=== PATIENT | female | born 1945 | race Caucasian/White ===

== ENCOUNTER 2018-06-29 19:08 | Emergency (ER) | payer OTHER, MEDICARE ==
[~2018-06-29] VITALS: Ht 165.1 cm; Wt 83.9 kg
[~2018-06-29 19:08] MED LIST: CHERATUSSIN AC118 M1 PO; ESCITALOPRAM10 MG PO; IBUPROFEN800 MG PO; MASON NATURAL1200 MG PO; NAPROXEN SODIU550 MG PO; OMEPRAZOLE40 MG PO; PRINIVIL 5MG5 MG PO; TRAMADOL HCL50 MG PO; VITAMIN D31000 IU PO
--- NOTE | 2018-06-29 21:17 | ED GENERAL ADULT ---
History of Present Illness General Chief Complaint: Neck/Upper Back Pain/Injury Stated Complaint: NECK PAIN X COUPLE OF WEEKS Source: patient Exam Limitations: no limitations Vital Signs & Intake/Output Vital Signs & Intake/Output Vital Signs Date Time Temp Pulse Resp B/P B/P Pulse O2 O2 Flow FiO2 Mean Ox Delivery Rate 06/297 98.4 66 16 180/82 100 Room Air 06/29 1913 97.0 78 18 152/88 98 Room Air Allergies Coded Allergies: NO KNOWN ALLERGIES (07/20/12) Reconcile Medications Cholecalciferol (Vitamin D3) 1,000 IU TAB 1 TAB PO DAILY SUPPLEMENT (Reported ) Codeine Phosphate/Guaifenesi (Cheratussin AC Syrup) 10 MG-100 MG/5 ML LIQUID 10 ML PO Q6P PRN COUGH Cyclobenzaprine HCl 10 MG TABLET 1 TAB PO BID PRN PAIN Escitalopram Oxalate 10 MG TABLET 0.5 TAB PO DAILY MENTAL HEALTH (Reported) Ibuprofen 800 MG TABLET 1 TAB PO TID PRN RA (Reported) OMEGA-3 FATTY ACIDS/FISH OIL (Fish Oil 1,200 MG Softgel) 360 MG-1,200 MG CAPSULE 1 SGL PO DAILY SUPPLEMENT (Reported) Omeprazole 40 MG CAPSULE.DR 1 CAP PO DAILY AC GI (Reported) Prednisone 5 MG TABLET 2 TAB PO DAILY ARTHTITIS TRAMADOL HCL (Tramadol HCl) 50 MG TABLET 1 TAB PO PRN PAIN R/T KIDNEY STONES (Reported) Triage Note: 73 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 DENIES CP Triage Nurses Notes Reviewed? yes Onset: Gradual Duration: week(s): Timing: recent history HPI: 73 year old female presents to the emergency department with right sided neck pain and decreased range of motion. She states that she has a history of rheumatoid arthritis. She states the pain in her neck has been going on for 3 months. She denies chest pain, abdominal pain or shortness of breath. She says that the pain is been ongoing for 3 months but worse over the past 3 weeks. She also has severe pain in her hands. She used to be on a low dose of methotrexate. Past History Travel History Traveled to [place] past 21 day No Medical History Any Pertinent Medical History? see below for history Neurological: NONE EENT: NONE Cardiovascular: NONE Respiratory: NONE Gastrointestinal: ACID REFLUX Hepatic: NONE Renal: NONE Musculoskeletal: RHEUMATOID ARTHRITIS Psychiatric: NONE Endocrine: NONE Surgical History Surgical History: non-contributory Psychosocial History What is your primary language Indian Tobacco Use: Never used ETOH Use: denies use Illicit Drug Use: denies illicit drug use Family History Hx Contributory? No Review of Systems Review of Systems Constitutional: Reports: see HPI. Denies: fever. EENTM: Reports: no symptoms. Denies: double vision, visual changes. Respiratory: Reports: no symptoms. Denies: short of breath. Cardiovascular: Reports: no symptoms. Denies: chest pain. GI: Reports: no symptoms. Genitourinary: Reports: no symptoms. Musculoskeletal: Reports: see HPI, neck pain. Skin: Reports: no symptoms. Neurological/Psychological: Reports: no symptoms. Hematologic/Endocrine: Reports: no symptoms. Immunologic/Allergic: Reports: no symptoms. All Other Systems: Reviewed and Negative Physical Exam Physical Exam General Appearance: no apparent distress, alert, awake, mild distress Head: atraumatic, normal appearance Eyes: Bilateral: normal appearance, PERRL, EOMI. Ears, Nose, Throat: normal ENT inspection Neck: limited range of motion, tender lateral (right sided) Respiratory: normal breath sounds, lungs clear Cardiovascular: regular rate/rhythm Peripheral Pulses: 4+ radial (R), 4+ radial (L) Gastrointestinal: soft, non-tender Back: normal inspection, normal range of motion Extremities: normal inspection, normal range of motion Neurologic/Psych: no motor/sensory deficits, awake, alert, oriented x 3 Skin: intact, normal color, warm/dry Core Measures ACS in differential dx? No CVA/TIA Diagnosis: No Sepsis Present: No Sepsis Focused Exam Completed? No Progress Differential Diagnoses I considered the following diagnoses in my evaluation of the patient: [Arthritis , disc herniation, epidural abscess, epidural hematoma, transverse myelitis,] Plan of Care: Orders Procedure Date/time Status EKG 06/295 Active Durable Medical Equipment 06/29 2302 Active Saline Lock 06/29 2147 Active Initial ED EKG: NSR Prior EKG: unchanged Departure Departure Disposition: STILL A PATIENT Condition: Stable Clinical Impression Primary Impression: Cervical arthritis Secondary Impressions: Rheumatoid arthritis Referrals: Patient Has No Primary Care Dr (PCP/Family) Departure Forms: Customer Survey General Discharge Information Prescriptions: Current Visit Scripts Cyclobenzaprine HCl 1 TAB PO BID PRN PAIN #20 TAB Prednisone 2 TAB PO DAILY #12 TAB Comments PATIENT: KENYON AGUIRRE PRESENT AGE: 73 PATIENT ACCOUNT NO: [id number] : 47 LOCATION: [facility] ORDERING PHYSICIAN: Gene Thomas DO SERVICE DATE: 06/29/18 EXAM TYPE: CAT - CT CERV SPINE WO IV CONTRAST; CT HEAD WO IV CONTRAST EXAMINATION: CT HEAD WITHOUT CONTRAST CT CERVICAL SPINE WITHOUT CONTRAST CLINICAL INFORMATION: Headache. Neck pain. COMPARISON: CT head 02/21/2015. CT of chest 05/02/2016. TECHNIQUE: Imaging was performed from the skull base to vertex without intravenous administration of contrast. In addition, helical noncontrast CT imaging was acquired through the cervical spine and source images were reviewed along with axial reconstructions and sagittal and coronal MPRs. DLP: 953.62 mGy-cm FINDINGS: HEAD: No intracranial mass, hemorrhage, or midline shift is visualized. The ventricles and sulci are age-appropriate. No extra-axial collections are identified. The paranasal sinuses and mastoid air cells are well aerated. CERVICAL SPINE: There is no evidence of acute cervical spine fracture. Vertebral bodies remain normal in height. Cervical vertebrae have normal alignment. There is multilevel degenerative spondylosis of the cervical spine with disc height narrowing and endplate spurs and facet joint arthrosis No pre- or paravertebral soft tissue abnormality is identified. This proximal scarring at lung apices bilaterally. This is unchanged since CAT of chest scan 05/02/2016 IMPRESSION: 1. No acute intracranial pathology. 2. No CT evidence of acute cervical spine fracture or traumatic subluxation DICTATED BY: Eddy Bailey MD DATE/TIME DICTATED:06/29/182219 COMMODITY INDU[employer]Y ANALYST:KARMA DATE/TIME TRANSCRIBED:06/29/182219 CONFIDENTIAL, DO NOT COPY WITHOUT APPROPRIATE AUTHORIZATION. <Electronically signed in Other Vendor System> SIGNED BY: Eddy Bailey MD 06/29/182234 CT scan of head is negative. The CT scan of her neck shows severe arthritis. She had substantial relief with IV steroids and IV Tylenol. She was given a soft collar. She was placed on prednisone and Flexeril and will follow-up with her surgery technician this week. Critical Care Note Critical Care Note Critical Care Time: non-applicable
--- NOTE | 2018-06-29 22:35 | CT SCAN REPORT ---
EXAMINATION: CT HEAD WITHOUT CONTRAST CT CERVICAL SPINE WITHOUT CONTRAST CLINICAL INFORMATION: Headache. Neck pain. COMPARISON: CT head 02/21/2015. CT of chest 05/02/2016. TECHNIQUE: Imaging was performed from the skull base to vertex without intravenous administration of contrast. In addition, helical noncontrast CT imaging was acquired through the cervical spine and source images were reviewed along with axial reconstructions and sagittal and coronal MPRs. DLP: 953.62 mGy-cm FINDINGS: HEAD: No intracranial mass, hemorrhage, or midline shift is visualized. The ventricles and sulci are age-appropriate. No extra-axial collections are identified. The paranasal sinuses and mastoid air cells are well aerated. CERVICAL SPINE: There is no evidence of acute cervical spine fracture. Vertebral bodies remain normal in height. Cervical vertebrae have normal alignment. There is multilevel degenerative spondylosis of the cervical spine with disc height narrowing and endplate spurs and facet joint arthrosis No pre- or paravertebral soft tissue abnormality is identified. This proximal scarring at lung apices bilaterally. This is unchanged since CAT of chest scan 05/02/2016 IMPRESSION: 1. No acute intracranial pathology. 2. No CT evidence of acute cervical spine fracture or traumatic subluxation
[2018-06-29 22:37] VITALS: BP 180/82
[2018-06-29] MEDS ORDERED: CYCLOBENZAPRINE10 M1 PO (23:07)
[2018-06-29] MEDS ORDERED: PREDNISONE5 M1 PO (23:07)
== END 2018-06-29 23:29 ==
LOC: ERH 19:08
DX: M47.812 Spondylosis without myelopathy or radiculopathy, cervical region (principal); M06.9 Rheumatoid arthritis, unspecified
CPT/HCPCS: 93005; 93010; 96374; 96375; J0131; J2930